=== PATIENT | female | born 1950 | race Caucasian/White ===

== ENCOUNTER 2018-08-20 13:47 | Emergency (ER) | payer MEDICARE, MEDICAID ==
--- NOTE | 2018-08-20 14:24 | RADIOLOGY REPORT (SQ) ---
EXAM DESCRIPTION: CT HEAD WITHOUT COMPLETED DATE/TIME: 08/20/2018 2:09 pm REASON FOR STUDY: Fall; Hematoma to the head and bruising COMPARISON: 04/26/2010 and earlier TECHNIQUE: Axial images acquired through the brain without intravenous contrast. Images reviewed wi th bone, brain and subdural windows. Additional sagittal and coronal reconstructions were generated. Images stored on PACS. All CT scanners at this facility use dose modulation, iterative reconstruction, and/or weight based d osing when appropriate to reduce radiation dose to as low as reasonably achievable (ALARA). [facility]: Dose Right [facility]: CareDose [facility]: Dose Right [facility]: Teradose 4D [facility]: [employer] RADIATION DOSE: CT Rad equipment meets quality standard of care and radiation dose reduction techniq ues were employed. CTDIvol: 53.2 mGy. DLP: 1070 mGy-cm. mGy. LIMITATIONS: None. FINDINGS: VENTRICLES: Normal size and contour. CEREBRUM: No masses. No hemorrhage. No midline shift. No evidence for acute infarction. Encephalom alacia of the posterior right frontal lobe, sequelae of prior infarct. Mild scattered supratentorial hypodensities. Chronic lacunar infarcts of the left basal ganglia. CEREBELLUM: No masses. No hemorrhage. No alteration of density. No evidence for acute infarction. EXTRAAXIAL SPACES: No fluid collections. No masses. ORBITS AND GLOBE: No intra- or extraconal masses. Normal contour of globe without masses. CALVARIUM: No fracture. PARANASAL SINUSES: No fluid or mucosal thickening. SOFT TISSUES: Moderate size hematoma overlying the frontal bone near midline. OTHER: No other significant finding. IMPRESSION: 1. No acute intracranial hemorrhage. 2. Encephalomalacia of the posterior right frontal lobe, sequelae of prior infarct. 3. Mild chronic microvascular ischemic disease and small chronic lacunar infarcts of the left basal g anglia. 4. Moderate size soft tissue hematoma overlying the frontal bone. No underlying calvarial fracture. EVIDENCE OF ACUTE STROKE: NO. COMMENT: Quality ID # [id number]: Final reports with documentation of one or more dose reduction techniques (e.g., Automated exposure control, adjustment of the mA and/or kV according to patient size, use of iterative reconstruction technique) TECHNICAL DOCUMENTATION: JOB ID: [id number] [employer]- All Rights Reserved Reading location - IP/workstation name: [email or web address]
[2018-08-20] MEDS ORDERED: BACITRACIN ZINC OINTMENT 15 GM TP ONE (15:07)
[2018-08-20] MEDS ORDERED: DIPH/PERTUSS(ACELL)/TETANUS VAC/PF 0.5 ML SYR (>=10YO) IM ONE (15:07)
--- NOTE | 2018-08-20 15:13 | ER Document Report ---
ED Fall - General Chief Complaint: Fall Stated Complaint: FALL/FACIAL PAIN Time Seen by Provider: 08/20/18 14:24 Information source: Patient Notes: 66-year-old female who had a mechanical fall when she tripped hitting her face and forehead. No loss of consciousness. No vomiting. Patient denies any neck pain, weakness or numbness, blurry vision, anterior posterior rib pain, back pain, extremity pain, abdominal pain, either before or after the fall. She states it was a purely mechanical fall denies any lightheadedness or dizziness. TRAVEL OUTSIDE OF THE [place] IN LAST 30 DAYS: No - HPI Occurred: Just prior to arrival - Related data Allergies/Adverse Reactions: codeine [Codeine] Allergy (Verified 02/09/12 13:50) Past Medical History - Social History Smoking Status: Current Every Day Smoker Frequency of alcohol use: None Drug Abuse: None Family History: Reviewed & Not Pertinent Patient has suicidal ideation: No Patient has homicidal ideation: No - Past Medical History Cardiac Medical History: Reports: Hx Hypercholesterolemia, Hx Hypertension Pulmonary Medical History: Reports: Hx COPD Endocrine Medical History: Reports: Hx Diabetes Mellitus Type 2 Renal/ Medical History: Denies: Hx Peritoneal Dialysis Past Surgical History: Reports: Hx Abdominal Surgery, Hx Appendectomy, Hx Cholecystectomy, Hx Hysterectomy - Immunizations Hx Diphtheria, Pertussis, Tetanus Vaccination: Yes Review of Systems - Review of Systems Constitutional: denies: Fever EENT: denies: Blurred vision, Nose discharge Cardiovascular: denies: Chest pain, Palpitations Respiratory: denies: Short of breath Gastrointestinal: denies: Vomiting Genitourinary: denies: Dysuria Musculoskeletal: denies: Leg swelling Neurological/Psychological: Other - no slurred speech -: Yes All other systems reviewed and negative Physical Exam - Vital signs Vitals: Temp Pulse Resp BP Pulse Ox 97.5 F 63 18 203/68 H 96 08/20/18 13:50 08/20/18 13:50 08/20/18 13:50 08/20/18 13:50 08/20/18 13:50 Notes: Reviewed vital signs and nursing note as charted by RN. CONSTITUTIONAL: Alert and oriented and responds appropriately to questions. Well-appearing; well-nourished HEAD: Normocephalic; left anterior forehead hematoma. Scattered abrasions to the face. No depressions palpated EYES: PERRL; full extraocular range of motion ENT: Normal nose; no septal hematomas present; midface stable; NECK: Supple without meningismus; non-tender; no cervical lymphadenopathy, no masses CARD: Regular rate and rhythm; no murmurs; no anterior posterior rib tenderness; symmetric distal pulses RESP: Normal chest excursion without splinting or tachypnea; breath sounds clear and equal bilaterally; no wheezes, no rhonchi, no rales ABD/GI: Normal bowel sounds; non-distended; soft, non-tender BACK: The back appears normal and is non-tender to palpation along the midline spine EXT: Normal ROM in all joints; non-tender to palpation; no edema SKIN: No acute lesions noted NEURO: CN 2-12 intact; 5/5 bilateral upper and lower extremity strength with sensation intact to light touch PSYCH: The patient's mood and manner are appropriate. Grooming and personal hygiene are appropriate. Course - Re-evaluation Re-evalutation: Given the above history and physical we will obtain a CT scan of the head. Patient is only on aspirin as a blood thinner. No blurry vision, neck pain, weakness or numbness. 08/20/18 15:13 Given the above history and physical examination we have cleaned and dressed the wounds. No apparent lacerations present. No change in neurologic examination. Blood pressure is improved. We have updated the patient's tetanus shot. I will provide wound care instructions with strict return precautions and the patient will be observed overnight by her daughter. - Vital Signs Vital signs: Temp Pulse Resp BP Pulse Ox 97.5 F 63 18 203/68 H 96 08/20/18 13:50 08/20/18 13:50 08/20/18 13:50 08/20/18 13:50 08/20/18 13:50 Discharge - Discharge Clinical Impression: Accidental fall Qualifiers: Encounter type: initial encounter Qualified Code(s): W19.XXXA - Unspecified fall, initial encounter Closed head injury Qualifiers: Encounter type: initial encounter Qualified Code(s): S09.90XA - Unspecified injury of head, initial encounter Contusion of face Qualifiers: Encounter type: initial encounter Qualified Code(s): S00.83XA - Contusion of other part of head, initial encounter Abrasion of face Qualifiers: Encounter type: initial encounter Qualified Code(s): S00.81XA - Abrasion of other part of head, initial encounter Condition: Good Disposition: HOME, SELF-CARE Additional Instructions: Come back immediately with any blurry vision, weakness or numbness, any new pain locations, fevers, or any other acute problems. Please apply bacitracin to the wounds twice daily and then sunblock once daily for 1 year once the wounds heal.
[2018-08-20 15:31] VITALS: BP 143/53
== END 2018-08-20 15:41 | disposition home or self-care (01) ==
LOC: ER 13:47
DX: S09.90XA Unspecified injury of head, initial encounter (principal); S00.83XA Contusion of other part of head, initial encounter; S00.81XA Abrasion of other part of head, initial encounter; W01.0XXA Fall on same level from slipping, tripping and stumbling without subsequent striking against object, initial encounter; F17.200 Nicotine dependence, unspecified, uncomplicated; E78.00 Pure hypercholesterolemia, unspecified; I10 Essential (primary) hypertension; E11.9 Type 2 diabetes mellitus without complications; J44.9 Chronic obstructive pulmonary disease, unspecified; Z23 Encounter for immunization; Z90.49 Acquired absence of other specified parts of digestive tract; Z90.710 Acquired absence of both cervix and uterus; Z88.6 Allergy status to analgesic agent; Z79.82 Long term (current) use of aspirin
CPT/HCPCS: 99283; 90471; 70450; 90715; J3490